=== PATIENT | male | born 1940 | race Caucasian/White ===

== ENCOUNTER 2019-06-04 11:03 | Observation (INO) ==
[2019-06-04] MEDS ORDERED: Ondansetron 4 MG/2 ML VIAL IVP ONE ×2 (11:16→13:12)
[2019-06-04] MEDS ORDERED: *HR* FentaNYL (PF) 100 MCG/2 ML VIAL IVP ONE ×2 (11:16→13:33)
--- NOTE | 2019-06-04 11:28 | Emergency Department Note ---
Disposition Clinical Impression: Diverticulitis Abdominal pain Qualifiers: Abdominal location: left lower quadrant Qualified Code(s): R10.32 - Left lower quadrant pain Disposition: Admitted As Inpatient Condition: Fair Time of Disposition: 14:01 General Adult HPI - General Chief complaint: ED Abdominal Pain Stated complaint: abd pain Time Seen by Provider: 06/04/19 11:05 Source: patient, family Mode of arrival: ambulatory Limitations: no limitations Nursing Notes Reviewed: Yes Vital Signs Reviewed: Yes - History of Present Illness HPI Narrative: Patient is a 78-year-old male that presents the emergency department with reports of abdominal pain and urinary retention. Patient states that the pain began around 9 AM this morning. Patient states that he does have a history of an enlarged prostate and is supposed to have a procedure done to reduce the size of his prostate in a couple weeks. Patient states that last night he is only able to piece small amount and this morning when he got up at 7:30 he was only able to the minimal amount. Patient states that he did eat breakfast and then went back to try to use the bathroom and developed a bit of abdominal pain. Patient states that the pain is located primarily in the left lower quadrant. Patient denies any radiation of the pain. Patient states that he has had urinary retention in the past and is required a catheter to be placed. al so states that when he finished breakfast and went to the bathroom and started complaining of abdominal pain he also started having shakes. Denies any fever. States that he is chronically short of breath due to a prior chemical exposure at work. Patient denies any blood in his stool but states over the past week has had more diarrhea than usual. Pain Scale: 10 - Related Data Home Medications Medication Instructions Recorded Confirmed Lisinopril/Hydrochlorothiazide 1 tab PO DAILY 01/01/17 06/04/19 [Zestoretic 20-25 mg Tablet] Tamsulosin [Flomax] 0.4 mg PO DAILY 05/21/17 06/04/19 Multivits,Ca,Min/Iron/FA/Lycop 1 tab PO DAILY 07/13/18 06/04/19 [Centrum Men's Tablet] Levothyroxine [Synthroid] 88 mcg PO 0630 01/26/19 06/04/19 Potassium Chloride [K-Tab ER] 10 meq PO DAILY 01/26/19 06/04/19 Simvastatin [Zocor] 40 mg PO DAILY 01/26/19 06/04/19 raNITIdine HCl [Ranitidine HCl] 300 mg PO DAILY 01/26/19 06/04/19 Aspirin [Lo-Dose Aspirin EC] 81 mg PO DAILY 06/04/19 06/04/19 Previous Rx's Medication Instructions Recorded Albuterol Sulfate [Proventil 2 puff IH Q4HR #1 [id number].[email or web address].[email or web address] 01/22/19 Inhaler] Allergies Allergy/AdvReac Type Severity Reaction Status Date / Time No Known Allergies Allergy Verified 01/30/19 23:09 All systems ED: reviewed and negative except as stated. Constitutional: Denies: fever Cardiovascular: Denies: chest pain Respiratory: Reports: dyspnea Gastrointestinal: Reports: abdominal pain, nausea, diarrhea. Denies: vomiting, hematochezia Neurological: Denies: weakness, numbness, paresthesias Past Medical History - Past Medical History Medical history: Reports: hyperlipidemia, hypertension, thyroid disease, cancer, DVT Surgical history: Reports: orthopedic, other, arthroscopy Psychiatric history: Reports: no psych history - Social History Smoking Status: Never smoker Smokeless Tobacco Status: No Alcohol use: Reports: occasionally Drug use: Reports: none Physical Exam - General Limitations: no limitations General appearance: alert, in no apparent distress - Head Head exam: atraumatic, normocephalic - Eye Eye exam: Present: normal appearance, EOMI - Neck Neck exam: Present: normal inspection, full ROM, trachea midline - Respiratory Respiratory exam: Present: normal lung sounds bilaterally. Absent: respiratory distress, wheezes - Cardiovascular Cardiovascular exam: Present: normal rhythm, tachycardia, normal heart sounds, +S1, +S2 - Abdominal Exam Abdominal exam: Present: soft, tenderness, normal bowel sounds Abdominal tenderness: Present: LLQ, diffuse, moderate - Extremities Exam Extremities exam: Present: other (1-2+ pitting edema bilateral lower extremity's.) - Neurological Exam Neurological exam: Present: alert, oriented X3 - Psychiatric Psychiatric exam: Present: normal affect, normal mood - Skin Skin exam: Present: warm, dry, intact Course Vital Signs Temperature 99.3 F 06/04/19 11:12 Pulse Rate 129 06/04/19 11:12 Respiratory Rate 18 06/04/19 11:12 Blood Pressure 152/88 06/04/19 11:12 O2 Sat by Pulse Oximetry 98 06/04/19 11:12 Temperature 99.3 F 06/04/19 11:12 Pulse Rate 130 06/04/19 12:23 Respiratory Rate 18 06/04/19 12:23 Blood Pressure 152/74 06/04/19 12:23 O2 Sat by Pulse Oximetry 96 06/04/19 12:23 Oxygen Delivery Oxygen Delivery Room Air Medical Decision Making - MDM Narrative Medical decision making narrative: Due the patient's into the emergency department with reports of abdominal pain and possible urinary retention we obtain basic laboratory testing, CT scan of the abdomen and pelvis as well as an EKG. Laboratory testing shows a mild hypokalemia. This will be replaced. Remainder the patient's laboratory testing is relatively unremarkable. The patient's CT scan did show evidence of an uncomplicated diverticulitis. The patient has had quite a bit of pain is required multiple doses of analgesics here in the emergency department as well as antiemetics. Due to the patient having a significant amount of pain and diverticulitis visualized on CT scan of his most appropriate for him to be admitted to the hospital for further evaluation and management. I called and spoke with the admitting hospitalist Dr. Vargas and she has accepted the patient to their service. Patient be admitted to the hospital this time for further evaluation and management. Family and patient have been updated. - Medical Records Medical records reviewed: Yes I reviewed the patient's medical records. - Lab Data Lab results reviewed: Yes I reviewed the patient's lab results. Result diagrams: 06/04/19 11:48 06/04/19 11:41 Lab Results 06/04/19 06/04/19 06/04/19 Range/Units 11:35 11:41 11:48 WBC 9.3 (4.3-11.1) K/mcL RBC 4.05 L (4.19-5.50) M/mcL Hgb 13.9 (12.9-16.9) g/dL Hct 40.0 (37.5-50.1) % MCV 98.8 (83.0-100.0) fL MCH 34.3 H (28.0-33.3) pg MCHC 34.8 (31.6-35.5) g/dL RDW 12.1 (11.5-14.5) % Plt Count 192 (140-400) K/mcL MPV 9.0 L (9.4-12.4) fL Immature Gran % 1.6 (0-4) % Seg Neutrophils % 88.6 % Lymphocytes % 8.0 % Monocytes % 1.2 % Eosinophils % 0.4 % Basophils % 0.2 % Neutrophils # 8.2 (1.6-8.9) K/mcL Lymphocytes # 0.7 (0.6-4.6) K/mcL Monocytes # 0.1 (0.0-1.3) K/mcL Eosinophils # 0.0 (0.0-0.6) K/mcL Basophils # 0.0 (0.0-0.2) K/mcL Sodium 137 (136-145) mEq/L Potassium 3.2 L (3.5-5.1) mEq/L Chloride 96 L (98-107) mEq/L Carbon Dioxide 28 (23-29) mEq/L BUN 19 (8-23) mg/dL Creatinine 0.98 (0.70-1.30) mg/dL Est GFR ( Amer) > 60 (> 60) Est GFR (Non-Af Amer) > 60 (> 60) BUN/Creatinine Ratio 19 (6-26) Glucose 190 H (70-105) mg/dL Calculated Osmolality 291 (280-300) Calcium 9.6 (8.6-10.3) mg/dL Total Bilirubin 0.9 (0.3-1.0) mg/dL Direct Bilirubin 0.2 (0.0-0.2) mg/dL Indirect Bilirubin 0.7 (0.0-1.2) mg/dL AST 19 (13-39) Units/L ALT 34 (7-52) Units/L Alkaline Phosphatase 54 (34-104) Units/L Troponin I < 0.03 (< 0.04) ng/mL Serum Total Protein 6.0 L (6.4-8.9) g/dL Albumin 3.8 (3.5-5.7) g/dL Globulin 2.2 L (2.4-3.5) g/dL Albumin/Globulin Ratio 1.7 (1.1-2.2) Lipase 33 (11-82) Units/L TSH 3.553 (0.340-5.600) mcIU/mL Urine Color Yellow (Yellow) Urine Clarity Clear (Clear) Urine pH 6.5 (5.0-8.0) pH Units Ur Specific [place] > 1.030 H (1.010-1.025) Urine Protein Trace (Neg-Trace) mg/dL Urine Glucose (UA) >=1000 H (Normal) mg/dL Urine Ketones Negative (Negative) mg/dL Urine Blood Negative (Negative) Urine Nitrite Negative (Negative) Urine Bilirubin Negative (Negative) Urine Urobilinogen Normal (Normal) mg/dL Ur Leukocyte Esterase Negative (Negative) Ur Culture Indicated? NO (NO) - Radiology Data Radiology results reviewed: Yes I reviewed the patient's radiology results. Abdomen/Pelvis CT 06/04/19 11:16 IMPRESSION: Uncomplicated acute sigmoid diverticulitis. D/ / Ashley Sierra MD / Ashley Sierra MD Interpreting Provider: Ashley Sierra MD - EKG Data EKG #1 EKG attestation: Yes I reviewed and interpreted this EKG. EKG results narrative: EKG showed a sinus tachycardia at a rate of 130 bpm, MI interval 138, QRS duration 80, QTc of 442. There is no evidence of STEMI on EKG. This is compared to previous EKG on 01/30/19 which showed a sinus tachycardia. Attestation Statement - Attestation Attestation: I, Pedro Amador, examined this patient and my medical decision-making was reviewed with the WRAP YARN SORTER/PA/Advanced Practice Nurse/Resident Physician. I agree with the documented findings, disposition and treatment plan as described except to the extent set forth below. 78-year-old male presents emergency Department with concerns of left lower quadrant abdominal pain. Patient reports diarrhea but denies hematochezia or melena. He is concerned about possible urinary tract infection versus urinary obstruction as he is required catheter in the past. Patient had postvoid residual of [address] of the abdomen and pelvis shows acute diverticulitis. Patient was started on antibiotics emergency department and he was admitted to hospitalist for further care and evaluation. He was tachycardic during his initial evaluation which improved with fluids, pain control and IV antibiotics.
[2019-06-04 11:44] LABS: Bilirubin,Urine Negative (Negative); Blood,Urine Negative (Negative); Clarity,Urine Clear (Clear); Color,Urine Yellow (Yellow); Glucose,Urine (UA) >=1000 mg/dL (Normal); Ketones,Urine Negative (Negative); Leukocyte Esterase,Urine Negative (Negative); Nitrite,Urine Negative (Negative); PH,Urine 6.5 pH Units (5.0-8.0); Protein,Urine Trace mg/dL (Neg-Trace); Specific Gravity,Urine > 1.030 (1.010-1.025); Urobilinogen,Urine Normal (Normal)
[2019-06-04 12:02] LABS: Basophils % 0.2 %; Eosinophils % 0.4 %; Hemoglobin 13.9 g/dL (12.9-16.9); Immature Granulocytes % 1.6 % (0-4); Lymphocytes # 0.7 K/mcL (0.6-4.6); Mean Corpuscular HGB Conc 34.8 g/dL (31.6-35.5); Mean Corpuscular Hemoglobin 34.3 pg (28.0-33.3); Mean Corpuscular Volume 98.8 fL (83.0-100.0); Monocytes # 0.1 K/mcL (0.0-1.3); Monocytes % 1.2 %; Neutrophils # 8.2 K/mcL (1.6-8.9); Platelet Count 192 K/mcL (140-400); Red Blood Count 4.05 M/mcL (4.19-5.50); Red Cell Distribution Width 12.1 % (11.5-14.5); Segmented Neutrophils % 88.6 %; White Blood Count 9.3 K/mcL (4.3-11.1)
[2019-06-04 12:19] LABS: Alanine Aminotransferase 34 Units/L (7-52); Albumin 3.8 g/dL (3.5-5.7); Albumin/Globulin Ratio 1.7 (1.1-2.2); Alkaline Phosphatase 54 Units/L (34-104); Aspartate Amino Transferase 19 Units/L (13-39); BUN/Creatinine Ratio 19 (6-26); Bilirubin,Direct 0.2 mg/dL (0.0-0.2); Bilirubin,Indirect 0.7 mg/dL (0.0-1.2); Bilirubin,Total 0.9 mg/dL (0.3-1.0); Blood Urea Nitrogen 19 mg/dL (8-23); Calcium 9.6 mg/dL (8.6-10.3); Carbon Dioxide 28 mEq/L (23-29); Chloride 96 mEq/L (98-107); Globulin 2.2 g/dL (2.4-3.5); Glucose 190 mg/dL (70-105); Lipase 33 Units/L (11-82); Osmolality,Calculated 291 (280-300); Potassium 3.2 mEq/L (3.5-5.1); Sodium 137 mEq/L (136-145); Troponin I < 0.03 ng/mL (< 0.04); eGFR For African Americans > 60 (> 60); eGFR For Non-African Americans > 60 (> 60)
[2019-06-04 12:32] LABS: Thyroid Stimulating Hormone 3.553 mcIU/mL (0.340-5.600)
[2019-06-04] MEDS ORDERED: 0.9 % Sodium Chloride 1,000 ML IVC ONE (12:45)
[2019-06-04] MEDS ORDERED: Piperacillin/Tazobactam 3.375 GM in 0.9 % Sodium Chloride Mini Bag 100 ML IVPB ONE (12:46)
[2019-06-04] MEDS ORDERED: Ketorolac 15 MG/ML VIAL IVP ONE (14:46)
[2019-06-04] MEDS ORDERED: Acetaminophen 325 MG TABLET PO ONE (15:18)
[2019-06-04] MEDS ORDERED: Naloxone 0.4 MG/ML INJ IVP PRN (15:27)
[2019-06-04] MEDS ORDERED: Ondansetron 4 MG/2 ML VIAL IVP PRN (15:27)
--- NOTE | 2019-06-04 15:30 | Internal Med History&Physical ---
Date of Encounter: 06/04/19 Time of Encounter: 15:30 Internal Medicine - H&P: HPI Chief complaint: abdominal pain History of present illness: Mr. Gaytan is a 78 year old male presented to the ER with abdominal pain that started early in a.m. as well as decreased urinary output. The patient has history of prostate enlargement and is scheduled for intervention in the next couple of weeks however he was concerned about decreased urinary output since yesterday. The patient also reported left lower quadrant abdominal pain was not ideation and associated with loose stool. The patient was evaluated by the ER staff and and foly catheter was placed, imaging studies was also suggestive of diverticulitis he was started and antibiotics and was admitted for further evaluation and management. Past Med Surg Social Fam HX - Past Medical History Medical history: hyperlipidemia, hypertension, thyroid disease, cancer, DVT Additional medical history: skin ca Psychiatric history: no psych history - Past Surgical History Surgical History: orthopedic, other, arthroscopy Additional surgical history: lesions - Social History Smoking Status: Never smoker Smokeless Tobacco Status: No Alcohol use: occasionally Drug use: none - Family History Mother Hx Family Cardiac Disorders: Yes (HTN) Brother Hx Family Cardiac Disorders: Yes (CABG) Hx Family Cancer: Yes (Throat) Father Adopted: Yes (adopted at 6 months old) Internal Medicine - H&P: Meds Tamsulosin [Flomax] 0.4 mg PO QPM 05/21/17 [History] Multivits,Ca,Min/Iron/FA/Lycop [Centrum Men's Tablet] 1 tab PO QAM 07/13/18 [History] Levothyroxine [Synthroid] 88 mcg PO 0630 01/26/19 [History] Potassium Chloride [K-Tab ER] 10 meq PO DAILY 01/26/19 [History] Simvastatin [Zocor] 40 mg PO QPM 01/26/19 [History] raNITIdine HCl [Ranitidine HCl] 300 mg PO QPM 01/26/19 [History] Fexofenadine HCl [Allergy Relief] 180 mg PO QAM 06/05/19 [History] Finasteride [Proscar] 5 mg PO QPM 06/05/19 [History] Furosemide [Lasix] 20 mg PO QAM 06/05/19 [History] Lisinopril-HCTZ 20-12.5 [Prinzide 20-12.5] 1 tab PO QAM 06/05/19 [History] predniSONE [PredniSONE] 10 mg PO DAILY 06/05/19 [History] Ciprofloxacin [Cipro] 500 mg PO BID #9 tablet 06/06/19 [Rx] metroNIDAZOLE [Flagyl] 500 mg PO TID #11 tablet 06/06/19 [Rx] Allergy/AdvReac Type Severity Reaction Status Date / Time No Known Allergies Allergy Verified 06/05/19 16:26 All Systems PM: A 10-system review of systems was performed and is negative for pertinent findings except as documented above in the HPI. - Constitutional Vitals: Temp Pulse Resp BP Pulse Ox 101.3 F H 138 18 108/53 95 06/04/19 15:27 06/04/19 15:27 06/04/19 15:27 06/04/19 15:27 06/04/19 15:27 General appearance: Present: A&O X 3 Exam: . - Head Head exam: Present: atraumatic, normocephalic - Neck Neck exam general surgery: Present: supple, trachea midline. Absent: lymph adenopathy - Respiratory Respiratory exam: Present: rhonchi. Absent: accessory muscle use, rales, wheezes - Cardiovascular Cardiovascular exam: Present: RRR, +S1, +S2. Absent: diastolic murmur, gallop, rubs, systolic murmur - GI/Abdominal GI/Abdominal exam: Present: normal bowel sounds, soft, no peritoneal signs. Absent: distended, tenderness - Extremities Exam Extremities exam: Present: warm, radial pulses palpable and symmetrical. Abs ent: calf tenderness, cyanotic, pedal edema Internal Med - H&P Results - Labs CBC & Chem 7: 06/06/19 05:32 06/06/19 05:32 Labs: Short CBC 06/04/19 Range/Units 11:48 WBC 9.3 (4.3-11.1) K/mcL Hgb 13.9 (12.9-16.9) g/dL Hct 40.0 (37.5-50.1) % Plt Count 192 (140-400) K/mcL Neutrophils # 8.2 (1.6-8.9) K/mcL BMP 06/04/19 11:41 Sodium 137 Potassium 3.2 L Chloride 96 L Carbon Dioxide 28 BUN 19 Creatinine 0.98 Glucose 190 H Calcium 9.6 Cardiac Enzymes 07/28/19 Range/Units 11:41 Troponin I < 0.03 (< 0.04) ng/mL Liver Function 06/04/19 Range/Units 11:41 Total Bilirubin 0.9 (0.3-1.0) mg/dL Direct Bilirubin 0.2 (0.0-0.2) mg/dL AST 19 (13-39) Units/L ALT 34 (7-52) Units/L Alkaline Phosphatase 54 (34-104) Units/L Albumin 3.8 (3.5-5.7) g/dL Urine 06/04/19 Range/Units 11:35 Urine Color Yellow (Yellow) Urine Clarity Clear (Clear) Urine pH 6.5 (5.0-8.0) pH Units Ur Specific [place] > 1.030 H (1.010-1.025) Urine Protein Trace (Neg-Trace) mg/dL Urine Glucose (UA) >=1000 H (Normal) mg/dL - Impressions ITS Impressions Abdomen/Pelvis CT 06/04/19 11:16 IMPRESSION: Uncomplicated acute sigmoid diverticulitis. D/ / Ashley Sierra MD / Ashley Sierra MD Interpreting Provider: Ashley Sierra MD - Assessment and Plan (1) Diverticulitis Status: Acute Assessment and plan: duration 8 I will start the patient in ciprofloxacin and metronidazole, however the patient was started and Zosyn by the ER staff which would provide similar coverage for acute diverticulitis. We'll keep the patient nothing by mouth for now, start patient IV hydration was isotonic saline and advance diet as tolerated (2) Hypothyroidism Status: Chronic Assessment and plan: we'll continue home thyroxine (3) HTN (hypertension) Status: Chronic Assessment and plan: we'll continue home antihypertensive regimen, continue to monitor blood pressure while inpatient and adjust regimen if indicated Qualifiers: Hypertension type: essential hypertension Qualified Code(s): I10 - Essential (primary) hypertension (4) HLD (hyperlipidemia) Status: Chronic Assessment and plan: we'll continue home statin and obtain fasting lipid profile in a.m. Qualifiers: Hyperlipidemia type: unspecified Qualified Code(s): E78.5 - Hyperlipidemia, unspecified (5) DVT prophylaxis Status: Acute (6) ILD (interstitial lung disease) Status: Chronic (7) Prostate enlargement Status: Acute - Time Spent With Patient Total time spent is greater than 50% in coordination of care (as documented) at patient's floor/unit and/or counseling patient:
[2019-06-04] MEDS: 0.9 % Sodium Chloride 1,000 ML IVC SCH (17:12)
[2019-06-05] MEDS: Piperacillin/Tazobactam 3.375 GM in 0.9 % Sodium Chloride Mini Bag 100 ML IVPB SCH ×2 (00:22→08:51)
[2019-06-05] MEDS: 0.9 % Sodium Chloride 1,000 ML IVC SCH (02:12)
[2019-06-05] MEDS: Acetaminophen 325 MG TABLET PO PRN ×2 (04:49→23:39)
[2019-06-05 06:55] LABS: Basophils % 0.3 %; Eosinophils # 0.1 K/mcL (0.0-0.6); Eosinophils % 1.1 %; Hematocrit 32.9 % (37.5-50.1); Lymphocytes # 1.3 K/mcL (0.6-4.6); Lymphocytes % 13.8 %; Mean Corpuscular Hemoglobin 34.1 pg (28.0-33.3); Mean Corpuscular Volume 100.3 fL (83.0-100.0); Mean Platelet Volume 9.2 fL (9.4-12.4); Monocytes # 0.6 K/mcL (0.0-1.3); Monocytes % 6.7 %; Neutrophils # 7.3 K/mcL (1.6-8.9); Platelet Count 156 K/mcL (140-400); Red Blood Count 3.28 M/mcL (4.19-5.50); Red Cell Distribution Width 12.4 % (11.5-14.5); Segmented Neutrophils % 77.1 %; White Blood Count 9.5 K/mcL (4.3-11.1)
[2019-06-05 06:56] LABS: Hemoglobin 11.2 g/dL (12.9-16.9)
[2019-06-05 07:01] LABS: Prothrombin Time 11.8 Seconds (9.4-12.1)
[2019-06-05 07:04] LABS: Activated Partial Thrombo Time 23.6 Seconds (26.0-36.0)
[2019-06-05 07:16] LABS: Alanine Aminotransferase 24 Units/L (7-52); Albumin 2.7 g/dL (3.5-5.7); Albumin/Globulin Ratio 1.5 (1.1-2.2); Alkaline Phosphatase 45 Units/L (34-104); Aspartate Amino Transferase 16 Units/L (13-39); BUN/Creatinine Ratio 14 (6-26); Bilirubin,Total 0.9 mg/dL (0.3-1.0); Blood Urea Nitrogen 14 mg/dL (8-23); Calcium 8.1 mg/dL (8.6-10.3); Carbon Dioxide 27 mEq/L (23-29); Chloride 103 mEq/L (98-107); Chol/HDL Ratio 3.3 (0-4.9); Cholesterol 131 mg/dL (< 200); Globulin 1.8 g/dL (2.4-3.5); Glucose 175 mg/dL (70-105); HDL Cholesterol 40 mg/dL (40-59); LDL Cholesterol,Calculated 65 mg/dL (0-99); Magnesium 1.6 mg/dL (1.6-2.6); Osmolality,Calculated 289 (280-300); Phosphorous 2.6 mg/dL (2.7-4.5); Potassium 3.3 mEq/L (3.5-5.1); Sodium 137 mEq/L (136-145); Total Protein 4.5 g/dL (6.4-8.9); Triglycerides 130 mg/dL (< 150); eGFR For African Americans > 60 (> 60); eGFR For Non-African Americans > 60 (> 60)
[2019-06-05] MEDS ORDERED: Dextrose Gel 15 GM/37.5 ML TUBE PO PRN ×2 (12:47)
[2019-06-05] MEDS ORDERED: D5% in Water 1,000 ML IVC PRN (12:47)
[2019-06-05] MEDS ORDERED: *HR* Dextrose 50 % in Water (Syg) 50 ML SYRINGE IVP PRN (12:47)
--- NOTE | 2019-06-05 13:41 | Internal Med Progress Note ---
<Tianna Awan - Last Filed: 06/05/19 15:03> Hospitalist Progress Note - Encounter Date of Encounter: 06/05/19 - Exam Vitals: Temp Pulse Resp BP Pulse Ox 97.9 F 76 16 140/81 95 06/05/19 11:52 06/05/19 11:52 06/05/19 11:52 06/05/19 11:52 06/05/19 11:52 - Assessment and Plan (1) HTN (hypertension) Current Visit: Yes Status: Chronic (2) Hypothyroidism Current Visit: No Status: Chronic (3) HLD (hyperlipidemia) Current Visit: Yes Status: Chronic (4) Enlarged prostate with lower urinary tract symptoms Current Visit: Yes Status: Chronic (5) DVT prophylaxis Current Visit: No Status: Acute (6) ILD (interstitial lung disease) Current Visit: Yes Status: Chronic (7) Diverticulitis Current Visit: Yes Status: Acute - Time Spent with Patient Total time spent is greater than 50% in coordination of care (as documented) at patient's floor/unit and/or counseling patient: Internal Medicine: Result - Labs CBC & Chem 7: 06/05/19 06:27 06/05/19 06:27 Labs: Short CBC 06/05/19 Range/Units 06:27 WBC 9.5 (4.3-11.1) K/mcL Hgb 11.2 L D (12.9-16.9) g/dL Hct 32.9 L (37.5-50.1) % Plt Count 156 (140-400) K/mcL Neutrophils # 7.3 (1.6-8.9) K/mcL BMP 06/05/19 06:27 Sodium 137 Potassium 3.3 L Chloride 103 Carbon Dioxide 27 BUN 14 Creatinine 0.99 Glucose 175 H Calcium 8.1 L Liver Function 06/05/19 Range/Units 06:27 Total Bilirubin 0.9 (0.3-1.0) mg/dL AST 16 (13-39) Units/L ALT 24 (7-52) Units/L Alkaline Phosphatase 45 (34-104) Units/L Albumin 2.7 L (3.5-5.7) g/dL - ABG Interpretation ABG results: PT/INR, D-dimer PT 11.8 Seconds (9.4-12.1) 06/05/19 06:27 Consult Discharge Plan - Plan Referrals: Jaguar Boss MD [Primary Care Provider] - - Attending Attestation The history, physical exam, and medical decision making was performed by the medical student Rosita either while I was physically present and actively involved or I personally re-performed the exam and medical decision making. I have verified the accuracy of the medical student's documentation with regards to the history, physical exam findings, and medical decision making. Mr Gaytan is being observed for mild uncomplicated diverticulitis awake, at bedside and feelign great. LLQ pain is resolved, no n /v/fevers/chills. Requesting to eat. denies lightheadedness, dizziness, cp or sob with hgb drop and denies any bleeding. discussed transition to meds he will go home on to monitor for effect/ side effects and will adat today. If does well will be able to dc to home likely in am which he is agreeable to gen- alert, awake,appears stated age cv- reg rate and rhythm, normal s1,s2 lungs- ctabl, no wheezing, rhonchi or crackles abd- soft, non tender, non distended, + bs neuro- AAOx3 skin- warm, dry, no pallor Uncomplicated acute sigmoid diverticulitis- transition to cipro flagyl in prep for likely dc to home in am and to monitor for side effects/allergic reaction, ADAT today Acute anemia without overt bleeding, hemodynamically stable- this could be partially dilutional- will cont to monitor Hypokalemia- improving- replete PO today, mag 1.6 therefore will give IV mag 2g as well, tele BPH- cont home meds, did NOT have brito cath placed, if pt experiences bladder pressure will notify nursing so can obtain bladder scan, fu with urology for outpt procedure as scheduled in upcoming weeks awaiting confirmation of all home meds further dxs and plan as noted by student <Chinyere Becker M - Last Filed: 06/05/19 16:04> Hospitalist Progress Note - Encounter Date of Encounter: 06/05/19 Time of Encounter: 09:10 - Subjective Interval History: No new complaints or acute events overnight. Today is day 2 of zosyn; pt feels much better overall and reports reduced LLQ pain 2/2 diverticulitis. He felt the urge to go to the bathroom 4x times w/o BM, only passing gas. Denied fevers, chills, or nightsweats overnight. No cough, wheezing, SOB, chest pain. Palpitations resolved since admission - Exam Vitals: Temp Pulse Resp BP Pulse Ox 97.9 F 76 16 140/81 95 06/05/19 11:52 06/05/19 11:52 06/05/19 11:52 06/05/19 11:52 06/05/19 11:52 Exam: Gen: pleasant and visibly well Neuro: alert and oriented HEENT: normocephalic CV: RRR, slight systolic murmur R upper sternum. Resp: CTA B/L upper issa and R middle lobe, with crackles lower lobes bilaterally. Abdomen: soft, round abdomen, no visible scars or lesions. LLQ tenderness; no rebound or guarding otherwise. No bruits on auscultation. Normal bowel sounds x4. Skin: no dry skin or rashes noted MSK: no edema, no joint pain - Assessment and Plan (1) Diverticulitis Current Visit: Yes Status: Acute Assessment and Plan: Pt presented to ER with 12h hx of LLQ abdominal pain, chills, and tachycardia. Abdominal CT showed sigmoid diverticulosis with prominent inflammation surrounding a diverticula along the posterior distal sigmoid colon suggestive of uncomplicated acute diverticulitis. Patient was started empirically on Zosyn 3.375 gm and reports improvement of his abdominal pain. No chills or tachycardia on exam today. Today, pt is switched to ciprofloxacin 500mg po bid and metronidazole 500mg po tid in anticipation to discharge tomorrow. (2) Abdominal pain Current Visit: Yes Status: Resolved Assessment and Plan: LLQ sharp pain 2/2 diverticulitis that has improved in quality and severity since admission with abs tx (3) Hyperglycemia Current Visit: Yes Status: Acute Assessment and Plan: Pt has persistent elevated glucose despite being NPO. Low dose SSI and HgA1c wth AM labs are ordered to assess /manage hyperglycemia. Will re-evaluate with AM labs (4) Hypokalemia Current Visit: Yes Status: Acute Assessment and Plan: 40mEq ordered to replete and add 2g Mg since there was no change in K following repletion (5) Enlarged prostate with lower urinary tract symptoms Current Visit: Yes Status: Chronic Assessment and Plan: Continue home medications of tamsulosin and finasteride. Patient to f/u with PCP for prostate surgery. (6) HLD (hyperlipidemia) Current Visit: Yes Status: Chronic Assessment and Plan: Continue home medication of simvastatin and f/u w/ PCP (7) HTN (hypertension) Current Visit: Yes Status: Chronic Assessment and Plan: Continue home medication of lisinopril/HCTZ and furosemide for BP; f/u w/ PCP (8) Hypothyroidism Current Visit: Yes Status: Chronic Assessment and Plan: Continue home medication of levothyroxin (9) ILD (interstitial lung disease) Current Visit: Yes Status: Chronic Assessment and Plan: CT showed interstitial changes in lung bases, peripherally, which is stable and similar to previous CT from 04/17/2016 - Time Spent with Patient Total time spent is greater than 50% in coordination of care (as documented) at patient's floor/unit and/or counseling patient: less than 15 minutes Plan of Care Discussed with: patient Internal Medicine: Result - Labs CBC & Chem 7: 06/05/19 06:27 06/05/19 06:27 Labs: Short CBC 06/05/19 Range/Units 06:27 WBC 9.5 (4.3-11.1) K/mcL Hgb 11.2 L D (12.9-16.9) g/dL Hct 32.9 L (37.5-50.1) % Plt Count 156 (140-400) K/mcL Neutrophils # 7.3 (1.6-8.9) K/mcL BMP 06/05/19 06:27 Sodium 137 Potassium 3.3 L Chloride 103 Carbon Dioxide 27 BUN 14 Creatinine 0.99 Glucose 175 H Calcium 8.1 L Liver Function 06/05/19 Range/Units 06:27 Total Bilirubin 0.9 (0.3-1.0) mg/dL AST 16 (13-39) Units/L ALT 24 (7-52) Units/L Alkaline Phosphatase 45 (34-104) Units/L Albumin 2.7 L (3.5-5.7) g/dL Labs reviewed. * Overall, today's CBC is lower than yesterdays. There are no signs of internal bleeding, will continue to monitor. * Potassium is low; 40mEq is ordered to replete. Mg is normal. * His glucose continues to be elevated and ranged from 190 yesterday to 175 today. HbA1c is ordered for diabetes assessment. * Calcium and phosphor are low, along with serum total protein and albumin dropped overnight which could explain low calcium. * Other electrolytes are normal and stable from yesterday. Will continue to monitor. * BMP, CBC, and phosphor are ordered. - ABG Interpretation ABG results: PT/INR, D-dimer PT 11.8 Seconds (9.4-12.1) 06/05/19 06:27 - EKG Interpretation EKG Interpreted by Myself: Yes (tachycardia, resolved today.) EKG shows normal: sinus rhythm Rate: tachycardia - Diagnostic Studies CT scan - pelvis Additional comments: Prostate mildly enlarged. Vascular calcifications. <Tianna Awan M - Last Filed: 06/05/19 15:03> (1) HTN (hypertension) Qualifiers: Hypertension type: essential hypertension Qualified Code(s): I10 - Essential (primary) hypertension (2) Hypothyroidism Qualifiers: Hypothyroidism type: acquired Qualified Code(s): E03.9 - Hypothyroidism, unspecified (3) HLD (hyperlipidemia) Qualifiers: Hyperlipidemia type: unspecified Qualified Code(s): E78.5 - Hyperlipidemia, unspecified <Chinyere Becker M - Last Filed: 06/05/19 16:04> (2) Abdominal pain Qualifiers: Abdominal location: left lower quadrant Qualified Code(s): R10.32 - Left lower quadrant pain (6) HLD (hyperlipidemia) Qualifiers: Hyperlipidemia type: unspecified Qualified Code(s): E78.5 - Hyperlipidemia, unspecified (7) HTN (hypertension) Qualifiers: Hypertension type: essential hypertension Qualified Code(s): I10 - Essential (primary) hypertension (8) Hypothyroidism Qualifiers: Hypothyroidism type: unspecified Qualified Code(s): E03.9 - Hypothyroidism, unspecified
[2019-06-05] MEDS: Insulin LISPRO 300 UNITS/3 ML VIAL SQ SCH ×2 (14:04→16:08)
[2019-06-05] MEDS: Aspirin Enteric Coated 81 MG Tablet PO SCH (14:48)
[2019-06-05] MEDS: metroNIDAZOLE 500 MG TABLET PO SCH ×2 (14:49→20:27)
--- NOTE | 2019-06-05 16:21 | Electrocardiograph Report ---
[place] [id number] Test Date: 2019-06-04 Pat Name: Christopher Gaytan Department: EXAM22 Room: 3A32 Gender: M [employer] K[employer]: : 1940 Requested By: Germain Ortiz Order Number: [id number] Reading MD: Troy Chandra Measurements Intervals [place] Rate: 130 P: 40 PA: 138 QRS: 59 QRSD: 80 T: -30 QT: 300 QTc: 442 Interpretive Statements Sinus tachycardia Inferior infarct, age indeterminate Electronically Signed On 06-05-2019 16:19:45 EDT by Troy Chandra
[2019-06-05] MEDS ORDERED: Insulin LISPRO 300 UNITS/3 ML VIAL SQ SCH (21:00)
[2019-06-06 07:12] LABS: Basophils % 0.3 %; Eosinophils # 0.1 K/mcL (0.0-0.6); Eosinophils % 1.9 %; Hematocrit 33.7 % (37.5-50.1); Hemoglobin 11.3 g/dL (12.9-16.9); Immature Granulocytes % 1.5 % (0-4); Lymphocytes # 1.2 K/mcL (0.6-4.6); Lymphocytes % 16.2 %; Mean Corpuscular HGB Conc 33.5 g/dL (31.6-35.5); Mean Corpuscular Hemoglobin 34.7 pg (28.0-33.3); Mean Corpuscular Volume 103.4 fL (83.0-100.0); Mean Platelet Volume 9.5 fL (9.4-12.4); Monocytes # 0.5 K/mcL (0.0-1.3); Monocytes % 6.4 %; Neutrophils # 5.3 K/mcL (1.6-8.9); Platelet Count 169 K/mcL (140-400); Red Blood Count 3.26 M/mcL (4.19-5.50); Red Cell Distribution Width 12.1 % (11.5-14.5); Segmented Neutrophils % 73.7 %; White Blood Count 7.2 K/mcL (4.3-11.1)
[2019-06-06 07:28] LABS: BUN/Creatinine Ratio 11 (6-26); Blood Urea Nitrogen 9 mg/dL (8-23); Calcium 8.6 mg/dL (8.6-10.3); Carbon Dioxide 29 mEq/L (23-29); Chloride 102 mEq/L (98-107); Glucose 147 mg/dL (70-105); Osmolality,Calculated 291 (280-300); Phosphorous 2.7 mg/dL (2.7-4.5); Potassium 3.8 mEq/L (3.5-5.1); Sodium 140 mEq/L (136-145); eGFR For African Americans > 60 (> 60); eGFR For Non-African Americans > 60 (> 60)
[2019-06-06] MEDS: Insulin LISPRO 300 UNITS/3 ML VIAL SQ SCH ×2 (07:58→12:41)
[2019-06-06 08:52] LABS: Estimated Average Glucose 237 mg/dl
[2019-06-06] MEDS ORDERED: Famotidine 20 MG TABLET PO SCH (09:00)
[2019-06-06] MEDS: metroNIDAZOLE 500 MG TABLET PO SCH (10:36)
[2019-06-06] MEDS: Aspirin Enteric Coated 81 MG Tablet PO SCH (10:37)
--- NOTE | 2019-06-06 11:07 | Discharge Summary ---
<Alissa Naranjo N - Last Filed: 06/06/19 11:33> - NOTES TO OUTPATIENT PROVIDER Notes to Outpatient Provider: Patient presented with acute diverticulitis, which was initially treated with IV zosyn. Patient was transitioned to oral ciprofloxacin and flagyl with prescription to complete 7-day course of therapy. Patient was noted to be hyperglycemic; hemoglobin A1c was noted to be elevated at 9.9. Patient was instructed to follow up with PCP for further management of this problem. Orders not resulted at time of discharge: Pending orders 06/05/19 04:00 Urinalysis reflex Microscopic [URIN] AM 0400 Date of Encounter: 06/06/19 Time of Encounter: 11:07 - Discharge Diagnosis (1) Diverticulitis Priority: Primary Status: Acute (2) HTN (hypertension) Priority: Secondary Status: Chronic Qualifiers: Hypertension type: essential hypertension Qualified Code(s): I10 - Essential (primary) hypertension (3) Hypothyroidism Priority: Secondary Status: Chronic Qualifiers: Hypothyroidism type: acquired Qualified Code(s): E03.9 - Hypothyroidism, unspecified (4) HLD (hyperlipidemia) Priority: Secondary Status: Chronic Qualifiers: Hyperlipidemia type: unspecified Qualified Code(s): E78.5 - Hyperlipidemia, unspecified (5) Hyperglycemia Priority: Secondary Status: Acute Hospital course: Mr. Gaytan is a 78 year old male who presented to the ER with abdominal pain and decreased urinary output. The patient has history of prostate enlargement and is scheduled for intervention in the next couple of weeks. Abdominal CT showed sigmoid diverticulosis with prominent inflammation surrounding a diverticula along the posterior distal sigmoid colon suggestive of uncomplicated acute diverticulitis. Patient was started empirically on Zosyn 3.375 gm, with rapid improvement in his abdominal pain. Patient was transitioned to oral antimicrobial therapy with ciprofloxacin and flagyl, which were well-tolerated. Patient was noted to have elevated blood glucose throughout this admission, with elevated hemoglobin A1c of 9.9. He was instructed to follow up with his PCP for further management. He was discharged with instructions to follow up with his PCP in 3-5 days and antibiotics to complete 7-day course of therapy. Discharge discussed with: patient, family - Time Spent with Patient Total time spent providing and/or coordinating discharge services: - Discharge Medications Prescriptions: New metroNIDAZOLE [Flagyl] 500 mg PO TID #11 tablet Ciprofloxacin [Cipro] 500 mg PO BID #9 tablet Continued Tamsulosin [Flomax] 0.4 mg PO QPM Multivits,Ca,Min/Iron/FA/Lycop [Centrum Men's Tablet] 1 tab PO QAM Simvastatin [Zocor] 40 mg PO QPM Levothyroxine [Synthroid] 88 mcg PO 0630 raNITIdine HCl [Ranitidine HCl] 300 mg PO QPM Potassium Chloride [K-Tab ER] 10 meq PO DAILY Finasteride [Proscar] 5 mg PO QPM Fexofenadine HCl [Allergy Relief] 180 mg PO QAM Furosemide [Lasix] 20 mg PO QAM Lisinopril-HCTZ 20-12.5 [Prinzide 20-12.5] 1 tab PO QAM predniSONE [PredniSONE] 10 mg PO DAILY Home Medications: Tamsulosin [Flomax] 0.4 mg PO QPM 05/21/17 [History] Multivits,Ca,Min/Iron/FA/Lycop [Centrum Men's Tablet] 1 tab PO QAM 07/13/18 [History] Levothyroxine [Synthroid] 88 mcg PO 0630 01/26/19 [History] Potassium Chloride [K-Tab ER] 10 meq PO DAILY 01/26/19 [History] Simvastatin [Zocor] 40 mg PO QPM 01/26/19 [History] raNITIdine HCl [Ranitidine HCl] 300 mg PO QPM 01/26/19 [History] Fexofenadine HCl [Allergy Relief] 180 mg PO QAM 06/05/19 [History] Finasteride [Proscar] 5 mg PO QPM 06/05/19 [History] Furosemide [Lasix] 20 mg PO QAM 06/05/19 [History] Lisinopril-HCTZ 20-12.5 [Prinzide 20-12.5] 1 tab PO QAM 06/05/19 [History] predniSONE [PredniSONE] 10 mg PO DAILY 06/05/19 [History] Ciprofloxacin [Cipro] 500 mg PO BID #9 tablet 06/06/19 [Rx] metroNIDAZOLE [Flagyl] 500 mg PO TID #11 tablet 06/06/19 [Rx] Allergies/Adverse Reactions: Allergy/AdvReac Type Severity Reaction Status Date / Time No Known Allergies Allergy Verified 06/05/19 16:26 Date of admission: 06/04/19 14:58 Primary care physician: Jaguar Boss MD Discharging clinician: Alissa Naranjo Anticipated date of discharge: 06/06/19 - Constitutional Vitals: Temp Pulse Resp BP Pulse Ox 97.9 F 84 18 150/84 96 06/06/19 08:19 06/06/19 08:19 06/06/19 08:19 06/06/19 08:19 06/06/19 08:19 General appearance: Present: A&O X 3 Exam: GENERAL: Well-developed, well-nourished adult male in no acute distress. HEENT: Atraumatic and normocephalic. CARDIOVASCULAR: Regular rate and rhythm. S1 and S2 present. No murmurs, gallops, or rubs. RESPIRATORY: Clear to auscultation bilaterally. Chest rises and falls symmetrically with respiration. No accessory muscle use noted. GASTROINTESTINAL: Abdomen is soft, nontender, nondistended. Active bowel sounds present x4 quadrants. EXTREMITIES: No clubbing, cyanosis, or edema. SKIN: Warm, dry, and intact. No rashes or discoloration visualized. NEUROLOGIC: Alert and oriented x3. Patient is cooperative with exam and answers questions appropriately. No apparent focal deficits. PSYCHIATRIC: Appropriate mood and affect. - Patient Status Disposition: Home, Self-Care Condition: Good Functional capacity at discharge: independent ambulation Overall status at discharge: patient is progressing back to baseline - Discharge Instructions Instructions: Diverticulitis (GEN) Follow Up With: Jaguar Boss MD [Primary Care Provider] - 06/08/19 3:00 pm (Patient needs followup in 3-5 days.) Additional Instructions: Follow up with your PCP in 3-5 days for reevaluation. Continue taking metronidazole three times daily and ciprofloxacin twice daily until medication is completed. Continue taking your regular home medications. Your blood glucose was elevated during this admission. Your hemoglobin A1c was also elevated. You will need to followup with your PCP for further management of this problem. Return to the emergency department if you develop fevers, chills, recurrent abdominal pain, nausea, vomiting, chest pain, shortness of breath, or if any new concerns arise. - Diet and Activity Activity: increase activity as tolerated, resume usual activities as tolerated Diet: advance to your usual diet, diabetic diet <Tianna Awan - Last Filed: 06/06/19 18:47> Orders not resulted at time of discharge: Pending orders 06/05/19 04:00 Urinalysis reflex Microscopic [URIN] AM 0400 Date of Encounter: 06/06/19 - Discharge Diagnosis (1) HTN (hypertension) Status: Chronic Qualifiers: Hypertension type: essential hypertension Qualified Code(s): I10 - Essential (primary) hypertension (2) Hypothyroidism Status: Chronic Qualifiers: Hypothyroidism type: acquired Qualified Code(s): E03.9 - Hypothyroidism, unspecified (3) HLD (hyperlipidemia) Status: Chronic Qualifiers: Hyperlipidemia type: unspecified Qualified Code(s): E78.5 - Hyperlipidemia, unspecified (4) Enlarged prostate with lower urinary tract symptoms Status: Chronic (5) DVT prophylaxis Status: Acute (6) ILD (interstitial lung disease) Status: Chronic (7) Diverticulitis Status: Acute Hospital course: Mr. Gaytan is a 78 year old male - Time Spent with Patient Total time spent providing and/or coordinating discharge services: Date of admission: 06/04/19 14:58 Primary care physician: Jaguar Boss MD - Constitutional Vitals: Temp Pulse Resp BP Pulse Ox 98.7 F 77 14 166/83 97 06/06/19 11:58 06/06/19 11:58 06/06/19 11:58 06/06/19 11:58 06/06/19 11:58 - Attending Attestation I examined this patient and my medical decision-making was reviewed with the Resident Physician Dr Naranjo. I agree with the documented findings, disposition and treatment plan as described except to the extent set forth below. Mr Gaytan is being observed for mild uncomplicated diverticulitis awake, at bedside . single 100.6 temp last night. he ahs felt back to baseline and has no complaints. no chills, n/v/abd pain. tolerating regular diet, eager for dc. discussed dc plan in detail and all questions answered dc'd to home in afternoon without further fevers gen- alert, awake,appears stated age cv- reg rate and rhythm, normal s1,s2 lungs- ctabl, normal resp effort on ra abd- soft, non tender, non distended, + bs neuro- AAOx3 Uncomplicated acute sigmoid diverticulitis- transitioned to cipro flagyl compete course outpt, fu pcp Acute anemia without overt bleeding, hemodynamically stable BPH- cont home meds, fu with urology for outpt procedure as scheduled in upcoming weeks times pent on dc 40 min
[2019-06-06 12:01] VITALS: BP 166/83
== END 2019-06-06 15:18 | disposition home or self-care (01) ==
LOC: EMEROOARM 11:03 → 3ANU 11:03 → SUATTDRO 14:58 → 3ANU 15:48
PROVIDERS: ADMIT Internal Medicine Nephrology; ATTEND Internal Medicine

== ENCOUNTER 2020-04-29 06:13 | Observation (INO) ==
[2020-04-29] MEDS ORDERED: CeFAZolin Syr 2,000MG/20 ML 2,000 MG/20 ML SYRINGE IVPB ONE (06:37)
[2020-04-29] MEDS ORDERED: Ringers Solution, Lactated 1,000 ML IVC SCH ×2 (06:45→11:15)
[2020-04-29] MEDS ORDERED: *HR* OxyCODONE Immed Rel 5 MG TABLET PO PRN (07:13)
[2020-04-29] MEDS ORDERED: Ondansetron 4 MG/2 ML VIAL IVP ONE (07:13)
[2020-04-29] MEDS ORDERED: Propranolol LA (24 HR) 60 MG CAP.SA.24H PO STA (07:13)
[2020-04-29] MEDS ORDERED: *HR* Promethazine 25 MG/ML VIAL IVP PRN ×2 (07:13→11:15)
[2020-04-29] MEDS ORDERED: *HR* HYDROmorphone PF 0.5 MG/0.5 ML SYRINGE IVP PRN (07:13)
[2020-04-29] MEDS ORDERED: Gabapentin 300 MG CAPSULE PO ONE (07:15)
[2020-04-29] MEDS ORDERED: Celecoxib 200 MG CAPSULE PO ONE (07:15)
[2020-04-29] MEDS ORDERED: Acetaminophen IV 1,000 MG/100 ML INFUS..BTL IVPB ONE (07:16)
[2020-04-29] MEDS ORDERED: Bupivacaine/EPI 1:200k 0.5%PF 10 ML VIAL ONE (07:18)
[2020-04-29] MEDS ORDERED: Ropivacaine/PF 0.5% 30 ML VIAL ONE (07:18)
[2020-04-29] MEDS ORDERED: Dexamethasone 4 MG/ML VIAL ONE (07:18)
[2020-04-29] MEDS ORDERED: Ethanol\\Acetic Acid\\Na Ace\\Ben 1,000 ML IRRIG.SOLN IR ONE (07:39)
[2020-04-29] MEDS ORDERED: Vancomycin 1,000 MG VIAL ONE (07:39)
[2020-04-29] MEDS ORDERED: *HR* Midazolam HCl 2 MG/2 ML VIAL ONE (07:54)
[2020-04-29] MEDS ORDERED: *HR* PHENYLEPHRINE 1,000 MCG/10 ML SYRINGE IVP ONE (08:06)
[2020-04-29] MEDS ORDERED: *HR* Phenylephrine 10 MG/ML VIAL ONE (08:13)
[2020-04-29] MEDS ORDERED: Tranexamic Acid 1,000 MG/10 ML VIAL ONE (08:33)
[2020-04-29] MEDS ORDERED: *HR* Propofol 200 MG/20 ML VIAL IVP ONE (09:19)
[2020-04-29] MEDS ORDERED: Total Joint Mixture (50 ml) INTRAART ONE (09:40)
[2020-04-29] MEDS ORDERED: Ondansetron 4 MG/2 ML VIAL ONE (09:55)
[2020-04-29] MEDS ORDERED: *HR* LORazepam 0.5 MG TABLET PO PRN (11:15)
[2020-04-29] MEDS ORDERED: MOM Conc 10 ML UD.LIQ PO PRN (11:15)
[2020-04-29] MEDS ORDERED: Dextrose Gel 15 GM/37.5 ML TUBE PO PRN ×2 (11:15)
[2020-04-29] MEDS ORDERED: D5% in Water 1,000 ML IVC PRN (11:15)
[2020-04-29] MEDS ORDERED: *HR* Dextrose 50 % in Water (Vial) 50 ML VIAL IVP PRN (11:15)
[2020-04-29] MEDS ORDERED: Furosemide 20 MG TABLET PO PRN (11:15)
[2020-04-29] MEDS ORDERED: Sennosides 8.6 MG TABLET PO PRN (11:15)
[2020-04-29] MEDS ORDERED: Naloxone 0.4 MG/ML INJ IVP PRN (11:15)
[2020-04-29] MEDS ORDERED: FLUOROURACIL APPL TP PRN (11:15)
[2020-04-29] MEDS ORDERED: Ondansetron 4 MG/2 ML VIAL IVP PRN (11:15)
[2020-04-29 11:17] LABS: Hemoglobin 12.2 g/dL (12.9-16.9)
[2020-04-29] MEDS: Insulin LISPRO 300 UNITS/3 ML VIAL SQ SCH ×2 (13:13→18:31)
[2020-04-29] MEDS: HYDROcodone BIT/Homatropine 5 MG TABLET PO PRN ×2 (14:41→23:38)
[2020-04-29] MEDS: Ascorbic Acid 500 MG TABLET PO SCH (17:01)
[2020-04-29] MEDS: CeFAZolin 2 GM/120 ML BAG IVPB SCH ×2 (17:02→23:38)
[2020-04-29] MEDS: *HR* OxyCODONE Immed Rel 5 MG TABLET PO PRN (18:32)
[2020-04-29] MEDS ORDERED: Insulin DETEMIR 100 UNIT/ML X5UNITS SQ SCH ×2 (21:00)
[2020-04-29] MEDS ORDERED: Insulin LISPRO 300 UNITS/3 ML VIAL SQ SCH (21:00)
[2020-04-29] MEDS: Famotidine 20 MG TABLET PO SCH (21:31)
[2020-04-30] MEDS: *HR* OxyCODONE Immed Rel 5 MG TABLET PO PRN (04:58)
[2020-04-30 08:00] LABS: Basophils % 0.4 %; Eosinophils # 0.1 K/mcL (0.0-0.6); Eosinophils % 0.7 %; Hematocrit 31.2 % (37.5-50.1); Hemoglobin 11.1 g/dL (12.9-16.9); Immature Granulocytes % 0.6 % (0-4); Lymphocytes # 0.9 K/mcL (0.6-4.6); Lymphocytes % 10.7 %; Mean Corpuscular HGB Conc 35.6 g/dL (31.6-35.5); Mean Corpuscular Hemoglobin 36.9 pg (28.0-33.3); Mean Corpuscular Volume 103.7 fL (83.0-100.0); Mean Platelet Volume 10.2 fL (9.4-12.4); Monocytes # 0.7 K/mcL (0.0-1.3); Monocytes % 8.1 %; Neutrophils # 6.7 K/mcL (1.6-8.9); Platelet Count 125 K/mcL (140-400); Red Blood Count 3.01 M/mcL (4.19-5.50); Segmented Neutrophils % 79.5 %; White Blood Count 8.4 K/mcL (4.3-11.1)
[2020-04-30] MEDS: Ascorbic Acid 500 MG TABLET PO SCH ×2 (08:10→16:39)
[2020-04-30] MEDS: Aspirin Enteric Coated 81 MG Tablet PO SCH (08:10)
[2020-04-30] MEDS: Propranolol LA (24 HR) 60 MG CAP.SA.24H PO SCH (08:11)
[2020-04-30] MEDS: Lisinopril-HCTZ 20-12.5mg TABLET PO SCH (08:12)
[2020-04-30] MEDS: Multivit/Ca/Min/Fe/FA 1 TAB TABLET PO SCH (08:12)
[2020-04-30 08:15] LABS: BUN/Creatinine Ratio 15 (6-26); Blood Urea Nitrogen 18 mg/dL (8-23); Calcium 8.2 mg/dL (8.6-10.3); Carbon Dioxide 26 mEq/L (23-29); Chloride 97 mEq/L (98-107); Glucose 224 mg/dL (70-105); Osmolality,Calculated 281 (280-300); Potassium 3.2 mEq/L (3.5-5.1); Sodium 131 mEq/L (136-145); eGFR For African Americans > 60 (> 60); eGFR For Non-African Americans 60 (> 60)
[2020-04-30] MEDS: Insulin LISPRO 300 UNITS/3 ML VIAL SQ SCH ×3 (08:18→16:49)
[2020-04-30] MEDS ORDERED: [UNRECOGNIZED DRUG - OTHER] PO SCH (09:00)
[2020-04-30 09:34] LABS: Estimated Average Glucose 194 mg/dl
[2020-04-30] MEDS ORDERED: Insulin DETEMIR 100 UNIT/ML X5UNITS SQ SCH (21:00)
[2020-04-30] MEDS: Famotidine 20 MG TABLET PO SCH (21:18)
[2020-05-01 03:40] LABS: Hemoglobin 9.9 g/dL (12.9-16.9); Red Cell Distribution Width 12.1 % (11.5-14.5)
[2020-05-01 03:42] LABS: BUN/Creatinine Ratio 19 (6-26); Basophils % 0.6 %; Blood Urea Nitrogen 20 mg/dL (8-23); Carbon Dioxide 30 mEq/L (23-29); Chloride 97 mEq/L (98-107); Eosinophils # 0.3 K/mcL (0.0-0.6); Eosinophils % 4.3 %; Glucose 145 mg/dL (70-105); Hematocrit 28.5 % (37.5-50.1); Immature Granulocytes % 0.7 % (0-4); Immature Platelets 3.4 % (1.1-6.1); Lymphocytes # 1.5 K/mcL (0.6-4.6); Lymphocytes % 20.8 %; Mean Corpuscular HGB Conc 34.7 g/dL (31.6-35.5); Mean Corpuscular Volume 103.6 fL (83.0-100.0); Mean Platelet Volume 10.2 fL (9.4-12.4); Monocytes # 0.8 K/mcL (0.0-1.3); Monocytes % 11.4 %; Neutrophils # 4.5 K/mcL (1.6-8.9); Osmolality,Calculated 281 (280-300); Potassium 3.6 mEq/L (3.5-5.1); Red Blood Count 2.75 M/mcL (4.19-5.50); Segmented Neutrophils % 62.2 %; Sodium 133 mEq/L (136-145); White Blood Count 7.3 K/mcL (4.3-11.1); eGFR For African Americans > 60 (> 60); eGFR For Non-African Americans > 60 (> 60)
[2020-05-01 03:49] LABS: Platelet Count 97 K/mcL (140-400)
[2020-05-01 04:32] LABS: Platelet Estimate Decreased (Normal)
[2020-05-01] MEDS: *HR* OxyCODONE Immed Rel 5 MG TABLET PO PRN (05:17)
[2020-05-01] MEDS: Ascorbic Acid 500 MG TABLET PO SCH (08:00)
[2020-05-01] MEDS: Aspirin Enteric Coated 81 MG Tablet PO SCH (08:00)
[2020-05-01] MEDS: Propranolol LA (24 HR) 60 MG CAP.SA.24H PO SCH (08:00)
[2020-05-01] MEDS: Multivit/Ca/Min/Fe/FA 1 TAB TABLET PO SCH (08:01)
[2020-05-01] MEDS: Lisinopril-HCTZ 20-12.5mg TABLET PO SCH (08:01)
[2020-05-01] MEDS: Insulin LISPRO 300 UNITS/3 ML VIAL SQ SCH (08:01)
[2020-05-01] MEDS ORDERED: Insulin LISPRO 300 UNITS/3 ML VIAL SQ SCH (11:07)
[2020-05-01 11:31] VITALS: BP 109/67
== END 2020-05-01 13:24 | disposition home health service (06) ==
LOC: SAMDAY 06:13 → 3NENU 06:13
PROVIDERS: ADMIT Orthopaedic Surgery; ATTEND Orthopaedic Surgery